=== PATIENT | male | born 1960 | race Caucasian/White ===

== ENCOUNTER 2018-06-10 18:58 | Emergency (ER) | payer MEDICAID ==
[~2018-06-10] VITALS: Ht 182.9 cm; Wt 90.7 kg
[2018-06-10 19:15] VITALS: BP_SYST 138
--- NOTE | 2018-06-10 20:03 | NUR ---
Patient to ER bed 08 to gown for evaluation. Side rails up. Report given to ANGY Zamora
--- NOTE | 2018-06-10 20:15 | NUR ---
PT AAOx4 presents to ED c/o 01/21 R thumb pain r/t overuse at work. Slight swelling noted. Skin pink dry and warm, breathing even and unlabored. No other injuries/complaints per pt/noted. Will continue to monitor.
--- NOTE | 2018-06-10 20:21 | NUR ---
ER Dr. Carvajal at bedside examining patient.
[2018-06-10 20:50] VITALS: BP_SYST 129
--- NOTE | 2018-06-10 20:50 | NUR ---
Patient given written and verbal discharge instructions and verbalizes understanding. ER MD Carvajal discussed with patient the results and treatment provided. Patient in stable condition. ID arm band removed. Rx of Bactrim, Motrin, Keflex given. Patient educated on pain management and to follow up with PMD. Pain Scale 0. Opportunity for questions provided and answered. Medication side effect fact sheet provided.
== END 2018-06-10 20:50 | disposition home or self-care (01) ==
LOC: SED 18:58
DX: L03.011 Cellulitis of right finger (principal); R03.0 Elevated blood-pressure reading, without diagnosis of hypertension; Z90.49 Acquired absence of other specified parts of digestive tract
CPT/HCPCS: 99283

== ENCOUNTER 2018-10-01 14:11 | Emergency (ER) | payer MEDICAID ==
[~2018-10-01] VITALS: Ht 182.9 cm; Wt 92.5 kg
[2018-10-01 14:11] VITALS: BP_SYST 138
--- NOTE | 2018-10-01 14:11 | NUR ---
MINNIE BACK TO BED #5 AND REPORT GIVEN TO ADRIENNE
--- NOTE | 2018-10-01 14:41 | NUR ---
ELEONORA CORONA AT BEDSIDE FOR EVALUATION
--- NOTE | 2018-10-01 14:55 | NUR ---
Patient presented to the ER with pain to the right knee. Patient A&Ox4, ambulatory to the ER, afebrile, respirations equal bilat. Patient states knee pain has been present for 5 months, today pain incresed and patient unable to bear weight on right leg prompting the er visit. Patient denies N/V/D at this time.
--- NOTE | 2018-10-01 14:55 | NUR ---
XRAYS BEING DONE AT BEDSIDE.
[2018-10-01] MEDS ORDERED: KETOROLAC TROMETHAMINE 30 MG VIAL IM ONE (15:30)
--- NOTE | 2018-10-01 15:40 | NUR ---
ER ELEONORA Morse at bedside discussing results with patient.
[2018-10-01 15:59] VITALS: BP_SYST 138
--- NOTE | 2018-10-01 15:59 | NUR ---
Patient given written and verbal discharge instructions and verbalizes understanding. ER ELEONORA Morse discussed with patient the results and treatment provided. Patient in stable condition. ID arm band removed. Rx of Naproxen given. Patient educated on pain management and to follow up with PMD. Pain Scale 2/10 and tolerable for pt. Opportunity for questions provided and answered. Medication side effect fact sheet provided.
== END 2018-10-01 15:59 | disposition home or self-care (01) ==
LOC: SED 14:11
DX: M25.561 Pain in right knee (principal)
CPT/HCPCS: 73564; 96372; 99283; J1885

== ENCOUNTER 2018-10-29 13:56 | Emergency (ER) | payer MEDICAID ==
[~2018-10-29] VITALS: Ht 182.9 cm; Wt 93.9 kg
[2018-10-29 14:00] VITALS: BP_SYST 119
[2018-10-29] MEDS ORDERED: HYDROcodone/ACETAMIN 10-325 MG TAB PO ONE (15:45)
[2018-10-29 16:15] VITALS: BP_SYST 120
== END 2018-10-29 16:15 | disposition home or self-care (01) ==
LOC: SED 13:56
DX: S83.92XA Sprain of unspecified site of left knee, initial encounter (principal); R03.0 Elevated blood-pressure reading, without diagnosis of hypertension; Z90.49 Acquired absence of other specified parts of digestive tract; W11.XXXA Fall on and from ladder, initial encounter; Y93.89 Activity, other specified; Y92.89 Other specified places as the place of occurrence of the external cause; Y99.8 Other external cause status
CPT/HCPCS: 73564; 99283

== ENCOUNTER 2018-12-06 03:20 | Emergency (ER) | payer MEDICAID ==
[~2018-12-06] VITALS: Ht 182.9 cm; Wt 93.9 kg
[2018-12-06 03:50] VITALS: BP_SYST 120
[2018-12-06] MEDS ORDERED: KETOROLAC TROMETHAMINE 60 MG/2 ML VIAL IM ONE (04:15)
[2018-12-06 04:58] VITALS: BP_SYST 122
== END 2018-12-06 04:58 | disposition home or self-care (01) ==
LOC: SED 03:20
DX: M54.40 Lumbago with sciatica, unspecified side (principal)
CPT/HCPCS: 96372; 99283; J1885

== ENCOUNTER 2019-01-06 17:31 | Emergency (ER) | payer MEDICAID ==
[~2019-01-06] VITALS: Ht 182.9 cm; Wt 90.7 kg
[2019-01-06 17:44] VITALS: BP_SYST 116
[2019-01-06] MEDS ORDERED: HYDROcodone/ACETAMIN 10-325 MG TAB PO ONE (18:00)
[2019-01-06] MEDS ORDERED: DIPH-TET-PERTUS Vaccine 0.5 ML VIAL (ADACEL) I.M. ONE (18:00)
[2019-01-06] MEDS ORDERED: BACITRACIN 1 GM OINT TP ONE (18:30)
[2019-01-06 18:52] VITALS: BP_SYST 120
== END 2019-01-06 18:52 | disposition home or self-care (01) ==
LOC: SED 17:31
DX: S87.01XA Crushing injury of right knee, initial encounter (principal); S70.312A Abrasion, left thigh, initial encounter; R03.0 Elevated blood-pressure reading, without diagnosis of hypertension; F17.210 Nicotine dependence, cigarettes, uncomplicated; Z71.6 Tobacco abuse counseling; K21.9 Gastro-esophageal reflux disease without esophagitis; Z90.49 Acquired absence of other specified parts of digestive tract; W20.8XXA Other cause of strike by thrown, projected or falling object, initial encounter; Y93.89 Activity, other specified; Y92.89 Other specified places as the place of occurrence of the external cause; Y99.8 Other external cause status
CPT/HCPCS: 73564; 90715; 99283

== ENCOUNTER 2021-04-14 15:57 | Emergency (ER) | payer MEDICAID, SELFPAY ==
[~2021-04-14] VITALS: Ht 182.9 cm; Wt 74.4 kg
[2021-04-14 15:57] VITALS: BP_SYST 128
[2021-04-14] MEDS ORDERED: KETOROLAC TROMETHAMINE 30 MG VIAL IVP ONE (17:30)
[2021-04-14 18:53] LABS: CALCIUM 8.9 mg/dL (8.4-11.0); CREATININE 1.08 mg/dL (0.55-1.30); POTASSIUM 4.5 mmol/L (3.5-5.1)
[2021-04-14 19:00] LABS: BASOPHILS # (AUTO) 0.1 K/uL (0.0-0.2); BASOPHILS % (AUTO) 0.8 % (0.0-2.0); EOSINOPHILS # (AUTO) 0.3 K/uL (0.0-0.4); EOSINOPHILS % (AUTO) 3.8 % (0.0-4.0); HEMOGLOBIN 14.2 g/dL (14.0-18.0); LYMPHOCYTES # (AUTO) 4.4 K/uL (1.0-5.5); LYMPHOCYTES % (AUTO) 47.8 % (20.5-51.5); MEAN CORPUSCULAR HEMOGLOBIN 33 pg (27-31); MEAN CORPUSCULAR HGB CONC 35 % (32-36); MEAN CORPUSCULAR VOLUME 96 fL (79.0-98.0); MONOCYTES # (AUTO) 0.9 K/uL (0.0-1.0); MONOCYTES % (AUTO) 10.1 % (1.7-9.3); NEUTROPHILS # (AUTO) 3.4 K/uL (1.8-7.7); NEUTROPHILS % (AUTO) 37.5 % (40.0-70.0); PLATELET COUNT (AUTO) 394 K/uL (130-430); RED BLOOD CELL COUNT(AUTO) 4.28 MIL/uL (4.2-6.2); RED CELL DISTRIBUTION WIDTH 13.3 % (9.0-15.0); TOTAL BILIRUBIN 0.2 mg/dL (0.0-1.0); WHITE BLOOD COUNT (AUTO) 9.1 K/uL (4.8-10.8)
[2021-04-14 20:23] LABS: PROTHROMBIN TIME 10.5 SECS (9.5-12.5)
[2021-04-14] MEDS ORDERED: KETOROLAC TROMETHAMINE 60 MG/2 ML VIAL IM ONE (21:00)
[2021-04-14] MEDS ORDERED: IOHEXOL 350 mgI/mL, 150 ML INFUS..BTL IV ONE (21:56)
[2021-04-15] MEDS ORDERED: LEVO750T45 PO (00:42)
[2021-04-15 00:50] VITALS: BP_SYST 132
== END 2021-04-15 00:50 | disposition home or self-care (01) ==
LOC: SED 15:57
DX: J18.9 Pneumonia, unspecified organism (principal); R07.81 Pleurodynia; M54.9 Dorsalgia, unspecified; K21.9 Gastro-esophageal reflux disease without esophagitis; F15.90 Other stimulant use, unspecified, uncomplicated; F14.90 Cocaine use, unspecified, uncomplicated
CPT/HCPCS: 36415; 71045; 71275; 76376; 80053; 83880; 84484; 85025; 85379; 85610; 85730; 93005; 96372; 99285; J1885; Q9967

== ENCOUNTER 2021-05-15 17:36 | Emergency (ER) | payer MEDICAID, SELFPAY ==
[~2021-05-15] VITALS: Ht 182.9 cm; Wt 79.4 kg
[~2021-05-15 17:36] MED LIST: LEVO750T45 PO
[2021-05-15 17:48] VITALS: BP_SYST 130
--- NOTE | 2021-05-15 18:12 | NUR ---
Patient to ER bed 4 to gown for evaluation. Side rails up. Report given to Mnii TRAVIS.
--- NOTE | 2021-05-15 18:17 | NUR ---
ER DR. HYDE AT THE BEDSIDE EXAMINING PT
--- NOTE | 2021-05-15 18:20 | NUR ---
PT CAME IN FROM HOME C/O BUMP, RED, SWOLLEN TO UPPER RIGHT ARM X 1 WEEK. PAINFUL AND WARM TO TOUCH. PT IS AMBULATORY, AAOX4, V/S STABLE, AFEBRILE
[2021-05-15] MEDS ORDERED: LIDOCAINE/EPI 1% 1:100000 20 ML VIAL INJ ONE (18:30)
[2021-05-15] MEDS ORDERED: MORPHINE 4 MG INJ. 4 MG/ML VIAL IM ONE (18:30)
--- NOTE | 2021-05-15 19:02 | NUR ---
ER DR. HYDE AT THE BEDSIDE FOR I&D, PT TOLERATING WELL
--- NOTE | 2021-05-15 19:03 | NUR ---
REPORT GIVEN TO ANGY WELLS FOR CONTINUING CARE
[2021-05-15] MEDS ORDERED: SULF1TAB48 PO (19:05)
[2021-05-15 19:18] VITALS: BP_SYST 130
--- NOTE | 2021-05-15 19:19 | NUR ---
Patient given written and verbal discharge instructions and verbalizes understanding. DR. BARRETT UGALDE MD discussed with patient the results and treatment provided. Patient in stable condition. ID arm band removed. Rx of BACTRIM given. Patient educated on pain management and to follow up with PMD. Pain Scale 0/10 Opportunity for questions provided and answered. Medication side effect fact sheet provided.
== END 2021-05-15 19:19 | disposition home or self-care (01) ==
LOC: SED 17:36
DX: L02.413 Cutaneous abscess of right upper limb (principal); L03.113 Cellulitis of right upper limb; K21.9 Gastro-esophageal reflux disease without esophagitis; F17.290 Nicotine dependence, other tobacco product, uncomplicated; Z79.899 Other long term (current) drug therapy; Z71.6 Tobacco abuse counseling
CPT/HCPCS: 10060; 96372; 99283; J2270

== ENCOUNTER 2022-01-17 16:19 | Emergency (ER) | payer MEDICAID ==
[~2022-01-17] VITALS: Ht 182.9 cm; Wt 82.1 kg
[~2022-01-17 16:19] MED LIST changes: +SULF1TAB48 PO
[2022-01-17 17:13] VITALS: BP_SYST 117
--- NOTE | 2022-01-17 17:19 | NUR ---
Pt triaged and placed in waiting room until a bed becomes available. Pt c/o groin pain since this morning due to "I had crazy sex". Pt is A&Ox4. Skin intact. VSS. NKA. No known medical conditions. Ambulatory with steady gait.
== END 2022-01-17 23:11 | disposition left against medical advice (07) ==
LOC: SED 16:19
DX: R10.9 Unspecified abdominal pain (principal); Z53.21 Procedure and treatment not carried out due to patient leaving prior to being seen by health care provider

== ENCOUNTER 2022-01-20 07:51 | Emergency (ER) | payer MEDICAID ==
[~2022-01-20] VITALS: Ht 182.9 cm; Wt 79.4 kg
[2022-01-20 07:59] VITALS: BP_SYST 117
--- NOTE | 2022-01-20 08:10 | NUR ---
Patient to ER bed 3 to gown for evaluation. Side rails up. Report given to
--- NOTE | 2022-01-20 08:15 | NUR ---
MD PEPE AT BEDSIDE ASSESSING PT.
[2022-01-20] MEDS ORDERED: MORPHINE 4 MG INJ. 4 MG/ML VIAL IVP ONE (08:30)
[2022-01-20] MEDS ORDERED: NACL 0.9% 1,000 ML IV ONE (08:30)
[2022-01-20] MEDS ORDERED: ONDANSETRON HCL 4 MG/2 ML VIAL IVP ONE (08:30)
--- NOTE | 2022-01-20 08:51 | NUR ---
IV 20G INSERTED TO THE RIGHT BICEP IN ONE ATTEMPT. FLUIDS INFUSING NOW.
[2022-01-20 09:15] LABS: BASOPHILS % (AUTO) 0.2 % (0.0-2.0); EOSINOPHILS # (AUTO) 0.1 K/uL (0.0-0.4); EOSINOPHILS % (AUTO) 0.9 % (0.0-4.0); HEMATOCRIT 36.5 % (36-54); HEMOGLOBIN 12.5 g/dL (14.0-18.0); LYMPHOCYTES # (AUTO) 1.1 K/uL (1.0-5.5); LYMPHOCYTES % (AUTO) 8.6 % (20.5-51.5); MEAN CORPUSCULAR HEMOGLOBIN 32 pg (27-31); MEAN CORPUSCULAR HGB CONC 34 % (32-36); MEAN CORPUSCULAR VOLUME 95 fL (79.0-98.0); MONOCYTES % (AUTO) 7.7 % (1.7-9.3); NEUTROPHILS # (AUTO) 10.8 K/uL (1.8-7.7); NEUTROPHILS % (AUTO) 82.6 % (40.0-70.0); PLATELET COUNT (AUTO) 248 K/uL (130-430); RED BLOOD CELL COUNT(AUTO) 3.86 MIL/uL (4.2-6.2); RED CELL DISTRIBUTION WIDTH 13.3 % (9.0-15.0); WHITE BLOOD COUNT (AUTO) 13.1 K/uL (4.8-10.8)
[2022-01-20 09:25] LABS: CALCIUM 8.7 mg/dL (8.4-11.0); CREATININE 0.81 mg/dL (0.55-1.30); POTASSIUM 4.5 mmol/L (3.5-5.1)
[2022-01-20 09:31] LABS: ALBUMIN 2.6 g/dL (3.4-4.8); TOTAL BILIRUBIN 0.5 mg/dL (0.0-1.0)
--- NOTE | 2022-01-20 09:46 | NUR ---
BACK FROM CT.
[2022-01-20 10:31] LABS: BILIRUBIN,URINE NEGATIVE (NEGATIVE); BLOOD, URINE NEGATIVE (NEGATIVE); COLOR,URINE YELLOW (YELLOW); GLUCOSE,URINE NEGATIVE (NEGATIVE); KETONES,URINE NEGATIVE (NEGATIVE); LEUKOCYTE ESTERASE ,URINE TRACE (NEGATIVE); NITRITE, URINE NEGATIVE (NEGATIVE); PROTEIN URINE TRACE (NEGATIVE); UROBILINOGEN,URINE 0.2 (0.2-1.0)
[2022-01-20 11:09] LABS: CLARITY/URINE SLIGHTLY HAZY (CLEAR)
[2022-01-20 11:12] LABS: BACTERIA,URINE FEW /HPF (None Seen); RBC,URINE NONE SEEN /HPF (0-3)
--- NOTE | 2022-01-20 11:17 | NUR ---
IV REMOVED INTACT. NO BLEEDING, GAUZE PLACED OVER.
[2022-01-20] MEDS ORDERED: IBUP-1969 PO (11:20)
[2022-01-20] MEDS ORDERED: DOXY100T2 PO (11:20)
--- NOTE | 2022-01-20 11:57 | NUR ---
PT WALKED OUT WITHOUT SIGNING AT THIS TIME. PT STATED HE IS LIVING AT [facility] AND CHECK OUT TIME IS 11AM. HE CALL THE [facility] AND THEY ARE GIVEN HIM TILL 1130. PT WILL NEED TO COME BACK TO OBTAIN HIS PRESCRIPTION D/T STI AND UTI.
[2022-01-20 12:00] VITALS: BP_SYST 130
[2022-01-21] MEDS ORDERED: DOXY100T2 PO (14:11)
[2022-01-21] MEDS ORDERED: IBUP-1971 PO (14:11)
== END 2022-01-20 12:00 | disposition home or self-care (01) ==
LOC: SED 07:51
DX: N49.2 Inflammatory disorders of scrotum (principal); N39.0 Urinary tract infection, site not specified; N50.812 Left testicular pain; N50.811 Right testicular pain; R30.0 Dysuria; R50.9 Fever, unspecified; K21.9 Gastro-esophageal reflux disease without esophagitis; F17.200 Nicotine dependence, unspecified, uncomplicated; Z79.899 Other long term (current) drug therapy
CPT/HCPCS: 99285; 96374; 72193; 96361; 96375; 80053; 81000; 85025; 87086; 36415; 76376; 87491; J2405; J2270; Q9967; J7030

== ENCOUNTER 2022-01-21 13:35 | Emergency (ER) | payer MEDICAID ==
[~2022-01-21] VITALS: Ht 182.9 cm; Wt 80.7 kg
[~2022-01-21 13:35] MED LIST changes: +DOXY100T2 PO; +IBUP-1969 PO
--- NOTE | 2022-01-21 13:45 | NUR ---
PT TRAIGED AND PLACED IN ED WAITING ROOM FOR AVAILABLE BED IN MAIN ED. ER MD AWARE OF MSE NEEDS
[2022-01-21 13:49] VITALS: BP_SYST 118
--- NOTE | 2022-01-21 13:53 | NUR ---
PT SEEN HERE YESTERDAY AND LEFT WITH DC PAPERWORK FOR SAME PROBLEM, BILATERAL TESTICLE PAIN AND SWELLING S/P "ROUGH SEX", PT ALSO TESTED GC+. STATES HE NEEDS FURTHER EVAULATION 10 PAIN, COLD PACK IN PLACE PER PT IS HELPFUL. PT IS AMBULATORY, AAOX4, VSS
[2022-01-21] MEDS ORDERED: cefTRIAXone 500 MG in LIDOCAINE 1%, 20 ML MDV 1 ML IM ONE (14:00)
[2022-01-21] MEDS ORDERED: DOXY100T2 PO (14:11)
[2022-01-21] MEDS ORDERED: IBUP-1971 PO (14:11)
--- NOTE | 2022-01-21 14:50 | NUR ---
Patient to ER bed H1 to gown for evaluation. Side rails up.
--- NOTE | 2022-01-21 15:00 | NUR ---
ER at bedside examining patient.
--- NOTE | 2022-01-21 15:10 | NUR ---
PT TOLERATED MEDICATED WELL.
--- NOTE | 2022-01-21 16:00 | NUR ---
PT TO US
--- NOTE | 2022-01-21 16:20 | NUR ---
Returned from radiology, back to [facility].
--- NOTE | 2022-01-21 17:13 | NUR ---
Patient given written and verbal discharge instructions and verbalizes understanding. ER MD discussed with patient the results and treatment provided. Patient in stable condition. ID arm band removed. Rx of DOXYCYLINE,MOTRIN given. Patient educated on pain management and to follow up with PMD. Pain Scale 3. Opportunity for questions provided and answered. Medication side effect fact sheet provided.
--- NOTE | 2022-01-24 22:01 | NUR ---
Dr Munguia made aware pt urine culture result. Spoke to pt to come back to ER for futher treatment per Dr Munguia.
== END 2022-01-21 17:13 | disposition home or self-care (01) ==
LOC: SED 13:35
DX: N45.1 Epididymitis (principal); A54.9 Gonococcal infection, unspecified; K21.9 Gastro-esophageal reflux disease without esophagitis; Z79.899 Other long term (current) drug therapy
CPT/HCPCS: 99284; 76870; 96372; J0696

== ENCOUNTER 2022-01-25 07:13 | Emergency (ER) | payer MEDICAID ==
[~2022-01-25] VITALS: Ht 182.9 cm; Wt 79.4 kg
[~2022-01-25 07:13] MED LIST changes: +IBUP-1971 PO
[2022-01-25 07:22] VITALS: BP_SYST 133
--- NOTE | 2022-01-25 07:36 | NUR ---
Patient to ER bed 8 to gown for evaluation. Side rails up. Report given to Yessica RAND.
--- NOTE | 2022-01-25 07:37 | NUR ---
PT presents with CC "pink eye" as stated by pt. Left eye has drainage and is pink no swelling. Pt states itchiness as well. Right eye is clear with itchiness and no swelling. Pt noted Right eye drainage this morning. AAOx4, skin intact, unlabored even respirations.
--- NOTE | 2022-01-25 08:00 | NUR ---
bedside with pt for MSE.
[2022-01-25] MEDS ORDERED: GENTAMICIN SULFATE 0.3% Non-Formulary OPHT. 5 ML DROPS OP ONE (08:45)
[2022-01-25] MEDS ORDERED: GENT5DRO7 EACH EYE (08:48)
[2022-01-25 09:00] VITALS: BP_SYST 133
--- NOTE | 2022-01-25 09:02 | NUR ---
Patient given written and verbal discharge instructions and verbalizes understanding. ER MD discussed with patient the results and treatment provided. Patient in stable condition. ID arm band removed. IV catheter removed intact and dressing applied, no active bleeding. Rx of Gentamycin drops given. Opportunity for questions provided and answered. Medication side effect fact sheet provided.
== END 2022-01-25 09:02 | disposition home or self-care (01) ==
LOC: SED 07:13
DX: H10.33 Unspecified acute conjunctivitis, bilateral (principal); K21.9 Gastro-esophageal reflux disease without esophagitis; Z79.899 Other long term (current) drug therapy
CPT/HCPCS: 87070-TC; 87075-TC; 99283

== ENCOUNTER 2022-08-01 00:14 | Emergency (ER) | payer MEDICAID ==
[~2022-08-01] VITALS: Ht 182.9 cm; Wt 83.9 kg
[~2022-08-01 00:14] MED LIST changes: +GENT5DRO7 EACH EYE; -LEVO750T45 PO; +LEVO750T64 PO
--- NOTE | 2022-08-01 01:20 | NUR ---
Patient triaged and placed in ED HW1. VSS and patient appears in no acute distress at this time. Accompanied by sig. other. MD Gilmore notified of need for MSE.
--- NOTE | 2022-08-01 01:31 | NUR ---
MD Gilmore at bedside examining pt.
[2022-08-01] MEDS ORDERED: cefTRIAXone 1 GM IVPB PREMIX 50 ML IV ONE (01:45)
[2022-08-01] MEDS ORDERED: SULFAMETHOXAZOLE/TRIMETHOPR DS 1 TABLET PO ONE (01:45)
[2022-08-01] MEDS ORDERED: MORPHINE 4 MG INJ. 4 MG/ML VIAL IVP ONE (01:45)
[2022-08-01] MEDS ORDERED: ONDANSETRON HCL 4 MG/2 ML VIAL IVP ONE (01:45)
[2022-08-01] MEDS ORDERED: DIPHTH,PERTUSS(ACELL),TET VAC 0.5 ML VIAL (Tdap) I.M. ONE (01:45)
[2022-08-01] MEDS ORDERED: SULF1TAB48 PO (01:53)
[2022-08-01] MEDS ORDERED: CEPH-548 PO (01:53)
[2022-08-01 02:07] LABS: BASOPHILS % (AUTO) 0.3 % (0.0-2.0); EOSINOPHILS # (AUTO) 0.3 K/uL (0.0-0.4); EOSINOPHILS % (AUTO) 2.3 % (0.0-4.0); HEMATOCRIT 37.9 % (36-54); HEMOGLOBIN 12.8 g/dL (14.0-18.0); LYMPHOCYTES # (AUTO) 1.5 K/uL (1.0-5.5); LYMPHOCYTES % (AUTO) 12.2 % (20.5-51.5); MEAN CORPUSCULAR HEMOGLOBIN 33 pg (27-31); MEAN CORPUSCULAR HGB CONC 34 % (32-36); MEAN CORPUSCULAR VOLUME 96 fL (79.0-98.0); MONOCYTES % (AUTO) 7.7 % (1.7-9.3); NEUTROPHILS # (AUTO) 9.7 K/uL (1.8-7.7); NEUTROPHILS % (AUTO) 77.5 % (40.0-70.0); PLATELET COUNT (AUTO) 259 K/uL (130-430); RED BLOOD CELL COUNT(AUTO) 3.94 MIL/uL (4.2-6.2); RED CELL DISTRIBUTION WIDTH 13.6 % (9.0-15.0); WHITE BLOOD COUNT (AUTO) 12.4 K/uL (4.8-10.8)
--- NOTE | 2022-08-01 02:26 | NUR ---
# 18 gauge angiocath placed to L HAND. Use of asceptic technique. Opsite placed over site. Blood return noted. Flushed with 10 cc of normal saline. No evidence of infiltration noted. Patient tolerated well.
--- NOTE | 2022-08-01 02:30 | NUR ---
Pt medicated as ordered; Tolerated well.
[2022-08-01 02:43] LABS: CALCIUM 8.9 mg/dL (8.4-11.0); CREATININE 1.32 mg/dL (0.55-1.30); TOTAL BILIRUBIN 0.4 mg/dL (0.0-1.0)
[2022-08-01 02:44] LABS: ALBUMIN 3.1 g/dL (3.4-4.8)
[2022-08-01] MEDS ORDERED: IBUP-1970 PO (03:40)
[2022-08-01 04:05] VITALS: BP_SYST 139
--- NOTE | 2022-08-01 04:05 | NUR ---
Patient given written and verbal discharge instructions and verbalizes understanding. ER MD Gilmore discussed with patient the results and treatment provided. Patient in stable condition. ID arm band removed. IV catheter removed intact and dressing applied, no active bleeding. Rx of Cephalexin, Ibuprofen, and Bactrim Ds sent to preferred pharmacy. Patient educated on pain management and to follow up with PMD. Opportunity for questions provided and answered. Medication side effect fact sheet provided.
== END 2022-08-01 04:02 | disposition home or self-care (01) ==
LOC: SED 00:14
DX: L03.114 Cellulitis of left upper limb (principal); R22.32 Localized swelling, mass and lump, left upper limb; N17.9 Acute kidney failure, unspecified; D64.9 Anemia, unspecified; K21.9 Gastro-esophageal reflux disease without esophagitis; Z79.899 Other long term (current) drug therapy
CPT/HCPCS: 99284; 96365; 96375; 80053; 85025; 87040; 36415; 73120; 90715; 83605; 90471; J0696; J2405; J2270